=== PATIENT | female | born 1945 | race Caucasian/White ===

== ENCOUNTER 2022-01-05 12:30 | Observation (INO) ==
[2022-01-05] MEDS ORDERED: EPINEPHrine 1 MG/ML VIAL IM ONE ×2 (12:42→14:34)
[2022-01-05] MEDS ORDERED: 0.9 % Sodium Chloride 1,000 ML IVC ONE (12:42)
[2022-01-05] MEDS ORDERED: methylPREDNISolone 125 MG/2 ML VIAL IVP ONE (12:42)
[2022-01-05] MEDS ORDERED: Famotidine 20 MG/2 ML VIAL IVP ONE (12:42)
[2022-01-05] MEDS ORDERED: methylPREDNISolone 125 MG/2 ML VIAL ONE (12:43)
[2022-01-05] MEDS ORDERED: Famotidine 20 MG/2 ML VIAL ONE (12:43)
[2022-01-05] MEDS ORDERED: EPINEPHrine 1 MG/ML VIAL ONE (12:43)
[2022-01-05 16:59] LABS: Basophils % 0.2 %; Eosinophils % 0.1 %; Hematocrit 41.2 % (35.3-44.9); Hemoglobin 13.7 g/dL (11.5-15.4); Immature Granulocytes % 0.2 % (0-4); Lymphocytes # 0.9 K/mcL (0.6-4.6); Lymphocytes % 8.7 %; Mean Corpuscular HGB Conc 33.3 g/dL (31.6-35.5); Mean Corpuscular Hemoglobin 29.3 pg (28.0-33.3); Mean Platelet Volume 8.9 fL (9.4-12.4); Monocytes # 0.1 K/mcL (0.0-1.3); Monocytes % 1.1 %; Neutrophils # 8.8 K/mcL (1.6-8.9); Platelet Count 237 K/mcL (140-400); Red Blood Count 4.68 M/mcL (3.82-4.97); Red Cell Distribution Width 12.8 % (11.5-14.5); Segmented Neutrophils % 89.7 %; White Blood Count 9.9 K/mcL (4.3-11.1)
[2022-01-05 17:21] LABS: BUN/Creatinine Ratio 29 (6-26); Blood Urea Nitrogen 22 mg/dL (8-23); Calcium 8.6 mg/dL (8.6-10.3); Carbon Dioxide 22 mEq/L (23-29); Chloride 106 mEq/L (98-107); Glucose 202 mg/dL (70-105); Osmolality,Calculated 301 (280-300); Potassium 2.5 mEq/L (3.5-5.1); Sodium 141 mEq/L (136-145); eGFR For African Americans > 60 (> 60); eGFR For Non-African Americans > 60 (> 60)
[2022-01-05] MEDS ORDERED: 0.9 % Sodium Chloride 500 ML IV ONE (17:39)
[2022-01-05] MEDS ORDERED: Naloxone 0.4 MG/ML INJ IVP PRN (19:30)
[2022-01-05] MEDS ORDERED: Acetaminophen 325 MG TABLET PO PRN (19:30)
[2022-01-05] MEDS ORDERED: Melatonin 3 MG TABLET PO PRN (19:30)
[2022-01-05] MEDS ORDERED: Ondansetron 4 MG/2 ML VIAL IVP PRN (19:30)
[2022-01-05 19:50] LABS: Magnesium 1.6 mg/dL (1.6-2.6)
[2022-01-05] MEDS ORDERED: *HR* Dextrose 50 % in Water (Syg) 50 ML SYRINGE IVP PRN (20:06)
[2022-01-05] MEDS ORDERED: D5% in Water 1,000 ML IVC PRN (20:06)
[2022-01-05] MEDS ORDERED: Dextrose 4 GM Chewable Tablets PO PRN ×2 (20:06)
[2022-01-05 21:32] LABS: Estimated Average Glucose 128 mg/dl; Hemoglobin A1C 6.1 %
[2022-01-05] MEDS ORDERED: Magnesium Sulfate 1 GM/102 ML PIGGYBACK IVPB ONE (23:47)
[2022-01-06] MEDS: Insulin LISPRO 300 UNITS/3 ML VIAL SUBQ SCH ×2 (00:32→06:03)
[2022-01-06 02:40] LABS: Hematocrit 40.5 % (35.3-44.9); Hemoglobin 13.4 g/dL (11.5-15.4); Mean Corpuscular HGB Conc 33.1 g/dL (31.6-35.5); Mean Corpuscular Hemoglobin 29.4 pg (28.0-33.3); Mean Corpuscular Volume 88.8 fL (83.0-100.0); Mean Platelet Volume 10.2 fL (9.4-12.4); Platelet Count 204 K/mcL (140-400); Red Blood Count 4.56 M/mcL (3.82-4.97); Red Cell Distribution Width 12.9 % (11.5-14.5)
[2022-01-06 03:08] LABS: BUN/Creatinine Ratio 26 (6-26); Blood Urea Nitrogen 21 mg/dL (8-23); Calcium 8.7 mg/dL (8.6-10.3); Carbon Dioxide 22 mEq/L (23-29); Chloride 108 mEq/L (98-107); Glucose 183 mg/dL (70-105); Osmolality,Calculated 296 (280-300); Potassium 4.3 mEq/L (3.5-5.1); Sodium 139 mEq/L (136-145); eGFR For African Americans > 60 (> 60); eGFR For Non-African Americans > 60 (> 60)
[2022-01-06 03:31] VITALS: O2SAT 95
[2022-01-06 06:25] VITALS: BP 127/74; PULSE 71; TEMP 97.8
[2022-01-06] MEDS ORDERED: Cholecalciferol (D-3) 1,000 UNIT (25MCG) TABLET PO SCH (09:00)
[2022-01-06] MEDS ORDERED: Loratadine 10 MG TABLET PO SCH (09:00)
[2022-01-06] MEDS ORDERED: allopurinoL 100 MG TABLET PO SCH (09:00)
[2022-01-06] MEDS ORDERED: Cyanocobalamin (B-12) 1,000 MCG TABLET PO SCH (09:00)
[2022-01-06] MEDS ORDERED: Ezetimibe [Zetia] 10 MG Tablet PO SCH (09:00)
== END 2022-01-06 10:55 | disposition home or self-care (01) ==
LOC: 3BNU 12:30 → EMEROOARM 12:30 → 3BNU 19:45
PROVIDERS: ADMIT Internal Medicine; ATTEND Internal Medicine